=== PATIENT | male | born 1950 | race Caucasian/White ===

== ENCOUNTER → 2021-01-18 14:54 | Outpatient (CLI) | payer OTHER, SELFPAY ==
[2021-01-18 16:05] LABS: BUN Creatinine Ratio 26.5 (6-22); Blood Urea Nitrogen 26 mg/dL (9-20); Calcium 10.4 mg/dL (8.4-10.2); Carbon Dioxide 26 mmol/L (22-32); Chloride 107 mmol/L (98-107); Estimated Glomerular Filt Rate > 60.0 mL/min (>60); Glucose 88 mg/dL (80-110); HEMOLYSIS < 15 (0-50); Potassium 4.6 mmol/L (3.4-5.1); Sodium 142 mmol/L (137-145)
[2021-01-18 16:32] LABS: Prostate Specific Antigen 4.19 ng/mL (0.10-4.00)
== END ==
PROVIDERS: PCP Emergency Medicine; Referring Provider Specialist; Visit Provider Specialist
DX: R31.9 Hematuria, unspecified (principal); N40.0 Benign prostatic hyperplasia without lower urinary tract symptoms; R39.9 Unspecified symptoms and signs involving the genitourinary system; Z80.42 Family history of malignant neoplasm of prostate; N39.0 Urinary tract infection, site not specified
CPT/HCPCS: 36415; 80048; 81002; 84153; 99214

== ENCOUNTER → 2021-02-05 10:21 | Outpatient (CLI) | payer OTHER, SELFPAY ==
[2021-02-05 11:51] LABS: BUN Creatinine Ratio 19.3 (6-22); Blood Urea Nitrogen 16 mg/dL (9-20); Calcium 9.7 mg/dL (8.4-10.2); Carbon Dioxide 28 mmol/L (22-32); Chloride 104 mmol/L (98-107); Estimated Glomerular Filt Rate > 60.0 mL/min (>60); Glucose 124 mg/dL (80-110); HEMOLYSIS < 15 (0-50); Potassium 4.4 mmol/L (3.4-5.1); Sodium 139 mmol/L (137-145)
== END ==
PROVIDERS: PCP Emergency Medicine; Referring Provider Specialist; Visit Provider Specialist
DX: R94.4 Abnormal results of kidney function studies (principal)
CPT/HCPCS: 36415; 80048

== ENCOUNTER → 2021-02-10 09:32 | Outpatient (CLI) | payer OTHER, SELFPAY ==
--- NOTE | 2021-02-10 09:33 | DI.CT.S_ITS ---
PROCEDURE: CT ABDOMEN PELVIS WO/W CON INDICATIONS: Hematuria TECHNIQUE: Optional 5 mm thick noncontrast images acquired from the diaphragm to the symphysis pubis. After the administration of intravenous contrast, 5 mm thick images acquired from the diaphragm to the symphysis pubis after a 10-minute delay. 2 mm thick coronal and sagittal reformats were then performed of the kidneys and ureters. For radiation dose reduction, the following was used: automated exposure control, adjustment of mA and/or kV according to patient size. COMPARISON: None. FINDINGS: Image quality: Excellent. Lung bases: Lung bases are clear. Heart size is normal. Small hiatal hernia. Urinary system: Both kidneys are normal in size, without hydronephrosis. There is a 1 mm stone in the inferior pole of the right kidney. No perinephric fat stranding. There are small parapelvic cysts bilaterally. There is normal bilateral renal enhancement. Renal calyces appear normal in morphology when filled with contrast. Opacified portions of both ureters demonstrate normal caliber. Bladder wall thickness is normal. Multiple calcified bladder stones are present in the dependent bladder lumen. Prostate is enlarged. Other solid organs: Hepatic steatosis. Liver is normal in size and enhancement. Gallbladder is contracted. Biliary system is non dilated. Pancreas enhances normally. Spleen is normal in size and enhancement. No adrenal nodules. Peritoneum and bowel: Bowel loops demonstrate normal wall thickness and caliber. There are numerous colonic diverticula. No CT findings to suggest acute diverticulitis. No free fluid or air. Nodes and vessels: No retroperitoneal or mesenteric adenopathy by size criteria. Aorta and inferior vena cava are normal in size. Abdominal wall: No ventral hernias. Pelvis: No pathologic free pelvic fluid. No inguinal adenopathy. There is a fat containing left inguinal hernia. Bones: No suspicious bony lesions. No vertebral body compression fractures. There is a left hip prosthesis. IMPRESSION: 1. A 1 mm nonobstructive stone in the inferior pole of the right kidney. No hydronephrosis. 2. Multiple bladder stones. 3. Enlarged prostate. 4. Diverticulosis without diverticulitis. 5. Hepatic steatosis. Dictated by: Pratima Ngo M.D. on 02/10/2021 at 11:42 Approved by: Pratima Ngo M.D. on 02/10/2021 at 12:24
== END ==
PROVIDERS: PCP Emergency Medicine; Referring Provider Specialist; Visit Provider Specialist
DX: N20.0 Calculus of kidney (principal); N21.0 Calculus in bladder; R97.20 Elevated prostate specific antigen [PSA]; K57.90 Diverticulosis of intestine, part unspecified, without perforation or abscess without bleeding
CPT/HCPCS: 74178

== ENCOUNTER → 2021-04-14 13:52 | Outpatient (CLI) | payer OTHER, SELFPAY ==
[2021-04-24 15:36] LABS: Size 5x5 mm (.); Uric Acid 100 % (.)
== END ==
PROVIDERS: PCP Emergency Medicine; Visit Provider Specialist
DX: N21.0 Calculus in bladder (principal); N39.0 Urinary tract infection, site not specified; R39.9 Unspecified symptoms and signs involving the genitourinary system; R31.9 Hematuria, unspecified; Z80.42 Family history of malignant neoplasm of prostate
CPT/HCPCS: 52000; 81002; 82365; 99215

== ENCOUNTER → 2021-04-21 07:43 | Outpatient (CLI) | payer OTHER, SELFPAY ==
[2021-04-21 08:46] LABS: COVID19 -Nasal RAPID Negative (Negative)
== END ==
PROVIDERS: PCP Emergency Medicine; Visit Provider Specialist
DX: Z20.822 Contact with and (suspected) exposure to COVID-19 (principal)
CPT/HCPCS: 87635

== ENCOUNTER 2021-04-23 09:49 | Day surgery (SDC) | payer OTHER, SELFPAY ==
[2021-04-20 08:04] VITALS: BMI 29.8
[2021-04-23] VITALS (11 sets, daily range): BP systolic 138–160; BP diastolic 72–96; PULSE 58–84; RESP 10–20; TEMP 36.1–36.5; O2SAT 94–99; BMI 29.8
[2021-04-23] MEDS: LACTATED RINGERS 1,000 ML 42 ML IV ×2 (10:22→12:03)
--- NOTE | 2021-04-23 10:45 | PM.PREOP ---
Pre-operative Note Interval Note History & Physical reviewed/Exam performed by Physician: Yes Changes to H&P: No
[2021-04-23] MEDS: CEFAZOLIN 1 GM VIAL 2 GM IV (11:21)
--- NOTE | 2021-04-23 11:32 | SUR.OPER ---
Lithotomy on padded OR bed, head on pillow, arms secured on padded arm boards at <90 degrees abduction. Legs secured in padded yellow fins stirrups.
[2021-04-23] MEDS: BELLADONNA/OPIUM SUPPOSITORIES 1 EACH PR (11:52)
--- NOTE | 2021-04-23 12:34 | PM.OP.1 ---
Operative Date/Time/Diagnoses Date of procedure: 04/23/21 Time of procedure: 12:34 Pre-op diagnosis: 1. Multiple bladder calculi 2. Gross hematuria 3. Severe lower urinary tract symptoms Procedure & Clinicians Procedure: 1. Laser cystolitholapaxy Same procedure as scheduled: Yes Indications: 1. Multiple bladder calculi. 2. Gross hematuria. 3. Severe lower urinary tract symptoms. Surgeon: Malika Lopez Anesthesia Type: General Operative Notes Findings: 1. Urethra-normal caliber without annular stricture or lesion. 2. External sphincter coapted with normal overlying urothelium. 3. Prostate 4.5 cm length with moderate lateral lobe obstruction and elevated median bar. 4. Bladder-1+ trabeculation. There were multiple, perhaps 20-30 round calculi line dependently in the floor the bladder. Closure Type: not applicable Specimen(s): other (Bladder stone fragments and dust) Applied: catheter (#18F [address] way Hidalgo catheter.) Estimated Blood Loss (mL): 0 Blood products transfused: none Tourniquet time (min): 0 Procedure in detail: The patient was positioned supine and administered general anesthesia. The patient was then repositioned semi lithotomy the lower abdomen, groin, and genitalia were prepped and draped in sterile fashion. Next a 20 2 [place]ese laser continuous-flow endoscope was passed lower urinary tract with the findings as described above. Next, a 360 micron laser was selected. All operating room personnel and patient were fitted with laser safety eyewear. Laser lithotripsy was then commenced and painstakingly each of the bladder calculi were fragmented into dust and tiny fragments. The [employer] evacuator was utilized to clear the bladder of dust and fragments on multiple occasions. The bladder was then left partially filled and all instrumentation was removed. An 18 [place] Hidalgo catheter was then inserted, the balloon inflated 10 cc, and the catheter was placed to gravity drainage. Complications: none Post-operative Condition: stable Disposition: PACU Plan for aftercare: Discharge home.
--- NOTE | 2021-04-23 12:36 | SUR.OPER ---
SOLTIVE LASER TOTAL ENERGY 63.620KJ TOTAL TIME 38:01MIN
[2021-04-23] MEDS: OXYCODONE IR 5 MG TABLET PO ×2 (13:07→14:19)
--- NOTE | 2021-04-23 13:10 | SUR.PHASEI ---
Dr Borrero states that pt will go home with regina garcia.
[2021-04-23] MEDS: ACETAMINOPHEN 325 MG TABLET 975 MG PO (14:19)
[2021-05-03 15:31] LABS: Size 5x5 mm (.); Uric Acid 100 % (.)
== END 2021-04-23 14:45 | disposition home or self-care (01) ==
PROVIDERS: PCP Emergency Medicine; Referring Provider Specialist; Visit Provider Specialist
PROC: 0TCB8ZZ Extirpation of Matter from Bladder, Via Natural or Artificial Opening Endoscopic (ICD-10-PCS; CPT 52318; principal; 2021-04-23 10:45)
DX: N21.0 Calculus in bladder (principal); N40.1 Benign prostatic hyperplasia with lower urinary tract symptoms
CPT/HCPCS: 52318; 82365; 82962; J0690; J2405; J2704; J3010

== ENCOUNTER → 2021-07-20 11:53 | Outpatient (CLI) | payer OTHER, SELFPAY ==
[2021-07-20 14:02] LABS: Uric Acid 5.8 mg/dL (3.5-8.5)
[2021-07-20 14:29] LABS: Prostate Specific Antigen 4.67 ng/mL (0.10-4.00)
[2021-07-21 13:41] LABS: Calcium 9.6 mg/dL (8.6-10.2); Parathyroid Hormone, Intact 42 pg/mL (15-65)
== END ==
PROVIDERS: PCP Emergency Medicine; Referring Provider Specialist; Visit Provider Specialist
DX: N21.0 Calculus in bladder (principal); R31.9 Hematuria, unspecified; Z87.448 Personal history of other diseases of urinary system; N13.8 Other obstructive and reflux uropathy; N40.1 Benign prostatic hyperplasia with lower urinary tract symptoms; Z80.42 Family history of malignant neoplasm of prostate
CPT/HCPCS: 36415; 82310; 83970; 84153; 84550

== ENCOUNTER → 2021-11-02 08:13 | Outpatient (CLI) | payer OTHER, SELFPAY ==
[2021-11-02 11:42] LABS: Prostate Specific Antigen 4.74 ng/mL (0.10-4.00)
== END ==
PROVIDERS: PCP Emergency Medicine; Referring Provider Specialist; Visit Provider Specialist
DX: R97.20 Elevated prostate specific antigen [PSA] (principal)
CPT/HCPCS: 36415; 84153

== ENCOUNTER → 2022-04-06 11:33 | Outpatient (CLI) | payer OTHER, SELFPAY ==
[2022-04-07 08:28] LABS: PSA Free % 13.3 % (.); PSA, Total 5.5 ng/mL (0.0-4.0)
== END ==
PROVIDERS: PCP Emergency Medicine; Referring Provider Specialist; Visit Provider Specialist
DX: R97.20 Elevated prostate specific antigen [PSA] (principal)
CPT/HCPCS: 36415; 84153; 84154

== ENCOUNTER → 2022-05-31 07:15 | Outpatient (CLI) | payer OTHER, SELFPAY ==
--- NOTE | 2022-05-31 07:16 | DI.MRI.S_ITS ---
PROCEDURE: MR PELIS WO/W CON INDICATIONS: concern regarding PSA behavior TECHNIQUE: Coronal HASTE, axial T1 FSE with fat saturation, 3-plane nonbreath-hold T2 FSE. After the administration of contrast, dynamic axial, delayed axial and coronal VIBE or 2-D FLASH with fat saturation through the pelvis. Optional diffusion weighted imaging and ADC may be performed. COMPARISON: None. FINDINGS: Image quality: Diffusion weighted and dynamic contrast enhanced images remain diagnostic, despite distortion and susceptibility artifact from left hip arthroplasty. Prostate: Gland measures 5.1 x 3.6 x 5.0 cm for a volume of 48 cc. Lesion 1: Left apex posterolateral peripheral zone measuring 1.0 x 0.9 cm (4/17). DWI score 4. T2 score 4. DCE +. Pi-RADS 4. Lesion 2: Right posterolateral mid gland peripheral zone (4/15) measuring 1.2 x 1.0 cm. DWI score 3. T2 score 3. DCE +. Pi-RADS 4. Lesion 3: Right basal posterolateral peripheral zone/right lateral central zone measuring 1.0 x 0.8 cm (4/13). DWI score 3. T2 score 3. DCE neg. Pi-RADS 3. Lesion 4: Right anterior fibromuscular stroma measuring 1.4 x 0.7 cm (4/16). DWI score 4. T2 score 4. DCE +. Pi-RADS 4. Genitourinary system: Mild wall thickening and trabeculations. No mass. Bowel and peritoneum: Colonic diverticula. No bowel obstruction. No pathologic free fluid. Nodes and vessels: No lymph nodes enlarged by size criteria. Soft tissues: Left fat containing inguinal hernia. Bones: Left hip arthroplasty with susceptibility limiting evaluation of surrounding structures. IMPRESSION: PI-RADS 3 and 4 lesions in the bilateral peripheral zones and right anterior fibromuscular stroma as described above. Mild wall thickening and bladder trabeculations most commonly due to chronic outlet obstruction, otherwise not well evaluated on cross-sectional imaging. Dictated by: James Spears M.D. on 05/31/2022 at 9:53 Approved by: James Spears M.D. on 05/31/2022 at 10:06
== END ==
PROVIDERS: PCP Emergency Medicine; Referring Provider Specialist; Visit Provider Specialist
DX: N42.9 Disorder of prostate, unspecified (principal); R97.20 Elevated prostate specific antigen [PSA]; N32.89 Other specified disorders of bladder
CPT/HCPCS: 72197; A9579

== ENCOUNTER → 2022-06-22 08:34 | Outpatient (CLI) | payer OTHER, SELFPAY ==
[2022-06-23 06:08] LABS: PSA Free % 14.7 % (.); PSA, Total 6.4 ng/mL (0.0-4.0)
== END ==
PROVIDERS: Specialist; PCP Emergency Medicine; Referring Provider Internal Medicine; Visit Provider Internal Medicine
DX: R97.20 Elevated prostate specific antigen [PSA] (principal)
CPT/HCPCS: 36415; 84153; 84154

== ENCOUNTER → 2024-07-09 09:13 | Outpatient (CLI) | payer OTHER, SELFPAY ==
[2024-07-09 10:50] LABS: Alanine Aminotransferase 42 IU/L (<50); Albumin 4.5 g/dL (3.5-5.0); Albumin Globulin Ratio 1.9 (1.0-2.8); Alkaline Phosphatase 90 U/L (38-126); Aspartate Aminotransferase 29 IU/L (17-59); BUN Creatinine Ratio 19.6 (6-22); Bilirubin Total 1.1 mg/dL (0.2-1.3); Blood Urea Nitrogen 18 mg/dL (9-20); Calcium 9.6 mg/dL (8.4-10.2); Carbon Dioxide 24 mmol/L (22-32); Chloride 103 mmol/L (98-107); Cholesterol 167 mg/dL (140-199); Estimated Glomerular Filt Rate > 60 mL/min (>60); Globulin 2.4 g/dL (1.7-4.1); Glucose 116 mg/dL (80-110); HDL Cholesterol 46 mg/dL (40-60); HEMOLYSIS < 15 (0-50); LDL Cholesterol Calculated 84 mg/dL (<100); Potassium 4.8 mmol/L (3.4-5.1); Sodium 135 mmol/L (137-145); Total Protein 6.9 g/dL (6.3-8.2); Triglycerides 187 mg/dL (35-150)
[2024-07-09 10:51] LABS: Hemoglobin A1C% w Est Avg Glu 5.8 % (4.0-6.0)
[2024-07-09 11:44] LABS: Hep C Virus Ab w/Reflex Quant NEGATIVE s/c (NEGATIVE)
== END ==
PROVIDERS: PCP Family Medicine; Referring Provider Family Medicine; Visit Provider Family Medicine
DX: C61 Malignant neoplasm of prostate (principal); I25.10 Atherosclerotic heart disease of native coronary artery without angina pectoris; E78.5 Hyperlipidemia, unspecified; I87.2 Venous insufficiency (chronic) (peripheral); G45.9 Transient cerebral ischemic attack, unspecified
CPT/HCPCS: 36415; 80053; 80061; 83036; 86803

== ENCOUNTER → 2024-09-25 14:58 | Outpatient (CLI) | payer OTHER, SELFPAY ==
[2024-09-25 17:43] LABS: Add Manual Diff / Slide Review NO; Basophils Absolute Auto 0 /uL (0-100); Basophils Percent Auto 0.2 % (0-2); Eosinophils Absolute Auto 100 /uL (0-450); Eosinophils Percent Auto 1.6 % (2-4); Hematocrit 42.2 % (41-53); Hemoglobin 14.1 g/dL (13.5-17.5); Lymphocytes Absolute Auto 1000 /uL (1100-4500); Lymphocytes Percent Auto 12.8 % (25-40); Mean Corpuscular HGB Conc 33.4 % (30-36); Mean Corpuscular Hemoglobin 30.9 PG (26-34); Mean Corpuscular Volume 92.6 fL (80-100); Monocytes Absolute Auto 700 /uL (0-900); Monocytes Percent Auto 9.2 % (3-14); Neutrophils Absolute Auto 6000 /uL (1500-7000); Neutrophils Percent Auto 76.2 % (50-75); Platelet Count 349 X10^3/uL (150-400); Red Blood Cell Count 4.56 X10^6/uL (4.5-5.9); Red Cell Distribution Width 13.4 % (11.6-14.8); White Blood Cell Count 7.9 X10^3/uL (4.5-11.0)
[2024-09-25 18:10] LABS: Alanine Aminotransferase 36 IU/L (<50); Albumin 4.2 g/dL (3.5-5.0); Albumin Globulin Ratio 1.4 (1.0-2.8); Alkaline Phosphatase 98 U/L (38-126); Aspartate Aminotransferase 25 IU/L (17-59); BUN Creatinine Ratio 17.6 (6-22); Bilirubin Total 0.8 mg/dL (0.2-1.3); Blood Urea Nitrogen 24 mg/dL (9-20); Calcium 9.7 mg/dL (8.4-10.2); Carbon Dioxide 26 mmol/L (22-32); Chloride 102 mmol/L (98-107); Estimated Glomerular Filt Rate 55 mL/min (>60); Globulin 2.9 g/dL (1.7-4.1); Glucose 96 mg/dL (80-110); HEMOLYSIS < 15 (0-50); Lipase 59 U/L (23-300); Potassium 4.7 mmol/L (3.4-5.1); Sodium 136 mmol/L (137-145); Total Protein 7.1 g/dL (6.3-8.2)
== END ==
PROVIDERS: PCP Family Medicine; Referring Provider Family Medicine; Visit Provider Family Medicine
DX: R10.31 Right lower quadrant pain (principal)
CPT/HCPCS: 36415; 80053; 83690; 85025

== ENCOUNTER → 2024-09-30 11:49 | Outpatient (CLI) | payer OTHER, SELFPAY ==
--- NOTE | 2024-09-30 12:00 | DI.CT.S_ITS ---
PROCEDURE: CT ABDOMEN PELVIS W CON INDICATIONS: RLQ pain TECHNIQUE: After the administration of intravenous contrast, axial sections acquired from the lung bases to the pubic symphysis. Coronal and sagittal reformats were performed. For radiation dose reduction, the following was used: automated exposure control, adjustment of mA and/or kV according to patient size. COMPARISON: [facility], CT, CT ABDOMEN PELVIS WO/W CON, 02/10/2021, 10:09. FINDINGS: Image quality: Diagnostic. Lower Chest: 3 millimeter well-defined nodule right lower lobe (series 3, image number 7), nonspecific. ABDOMEN: Liver: No solid mass. Gallbladder: No radiopaque gallstones or wall thickening. Biliary ducts: No biliary dilation. Pancreas: No ductal dilation. Spleen: Size is within normal limits. Adrenal Glands: No adrenal nodules. Kidneys and Ureters: [id number] right-sided hydronephrosis and right-sided mild hydroureter with periureteral inflammatory changes in the retroperitoneal fat. Minimal left-sided hydronephrosis without hydroureter on the left. No obstructing renal calculi. 2 millimeter calculus lower pole right kidney nonobstructing. Stomach and Bowel: Normal colonic caliber, without significant wall thickening. Peritoneum: No abnormal intraperitoneal fluid. No free air. Ventral Wall: No significant ventral hernia. Abdominal Nodes: No retroperitoneal or mesenteric adenopathy by size criteria. Vessels: Aorta and inferior vena cava are normal in size. PELVIS: Pelvic Organs: Unremarkable. Bladder: Right-sided lateral and posterolateral bladder wall thickening new from the prior study up to 1.2 centimeters in thickness. Prior noted stones within the bladder no longer present. Pelvic Nodes: Numerous subcentimeter right pelvic lymph nodes. Inflammatory changes in the right pelvic fat surrounding the right ureter and adjacent to the bladder. Miscellaneous: Small inguinal hernia containing fat on the left. Extensive sigmoid diverticulosis without definite evidence of diverticulitis. Bones: No aggressive osseous abnormality. Stable permeative changes left iliac bone unchanged from February 10, 2021 likely benign appearance. IMPRESSION: 1. New findings of moderate right-sided hydronephrosis and right sided mild hydroureter as well as left mild hydronephrosis with asymmetric right-sided bladder wall thickening up to 1.2 centimeters in thickness. Inflammatory changes about the right ureter and bladder and some numerous small lymph nodes in the right pelvis. Differential diagnosis includes infectious, inflammatory and possibly neoplastic process within the bladder. The prior noted stones within the bladder are no longer present. Direct visualization with cystoscopy is recommended, urologic consultation. 2. 3 millimeter right lower lobe lung nodule, nonspecific. This region was not imaged on the prior study. 4. Other incidental findings as above. Dictated by: Peng Maya M.D. on 09/30/2024 at 14:54 Approved by: Peng Maya M.D. on 09/30/2024 at 15:05
== END ==
LOC: CT 11:49
PROVIDERS: PCP Family Medicine; Referring Provider Family Medicine; Visit Provider Family Medicine
DX: N13.30 Unspecified hydronephrosis (principal); N20.0 Calculus of kidney; R91.1 Solitary pulmonary nodule; R10.31 Right lower quadrant pain
CPT/HCPCS: 74177; Q9967

== ENCOUNTER → 2024-10-12 08:44 | Outpatient (CLI) | payer OTHER, SELFPAY ==
[2024-10-12 10:45] LABS: Prostate Specific Antigen 1.17 ng/mL (0.10-4.00)
== END ==
PROVIDERS: PCP Family Medicine; Referring Provider Physician Assistant; Visit Provider Physician Assistant
DX: C61 Malignant neoplasm of prostate (principal)
CPT/HCPCS: 36415; 84153

== ENCOUNTER → 2024-12-18 08:29 | Outpatient (CLI) | payer OTHER, SELFPAY ==
[2024-12-18 10:25] LABS: Add Manual Diff / Slide Review NO; Basophils Absolute Auto 0 /uL (0-100); Basophils Percent Auto 0.4 % (0-2); Eosinophils Absolute Auto 200 /uL (0-450); Eosinophils Percent Auto 2.5 % (2-4); Hematocrit 37.7 % (41-53); Hemoglobin 12.8 g/dL (13.5-17.5); Lymphocytes Absolute Auto 1200 /uL (1100-4500); Lymphocytes Percent Auto 17.2 % (25-40); Mean Corpuscular HGB Conc 33.9 % (30-36); Mean Corpuscular Hemoglobin 30.5 PG (26-34); Mean Corpuscular Volume 89.9 fL (80-100); Monocytes Absolute Auto 500 /uL (0-900); Monocytes Percent Auto 7.3 % (3-14); Neutrophils Absolute Auto 5000 /uL (1500-7000); Neutrophils Percent Auto 72.6 % (50-75); Platelet Count 380 X10^3/uL (150-400); Red Blood Cell Count 4.19 X10^6/uL (4.5-5.9); White Blood Cell Count 6.9 X10^3/uL (4.5-11.0)
[2024-12-18 10:56] LABS: Alanine Aminotransferase 27 IU/L (<50); Albumin 4.6 g/dL (3.5-5.0); Albumin Globulin Ratio 1.7 (1.0-2.8); Alkaline Phosphatase 67 U/L (38-126); Aspartate Aminotransferase 21 IU/L (17-59); BUN Creatinine Ratio 19.7 (6-22); Bilirubin Total 0.7 mg/dL (0.2-1.3); Blood Urea Nitrogen 29 mg/dL (9-20); Calcium 9.8 mg/dL (8.4-10.2); Carbon Dioxide 21 mmol/L (22-32); Chloride 105 mmol/L (98-107); Estimated Glomerular Filt Rate 50 mL/min (>60); Globulin 2.7 g/dL (1.7-4.1); Glucose 114 mg/dL (80-110); HEMOLYSIS < 15 (0-50); Potassium 5.3 mmol/L (3.4-5.1); Sodium 139 mmol/L (137-145); Total Protein 7.3 g/dL (6.3-8.2)
[2024-12-18 11:27] LABS: TSH w/ Reflex to FT4 2.59 uIU/mL (0.47-4.68)
[2024-12-18 12:47] LABS: Hemoglobin A1C% w Est Avg Glu 5.7 % (4.0-6.0)
== END ==
PROVIDERS: PCP Family Medicine; Referring Provider Family Medicine; Visit Provider Family Medicine
DX: N28.9 Disorder of kidney and ureter, unspecified (principal); R53.82 Chronic fatigue, unspecified; R73.01 Impaired fasting glucose; K62.89 Other specified diseases of anus and rectum
CPT/HCPCS: 80053; 83036; 84443; 85025

== ENCOUNTER → 2025-04-01 09:17 | Outpatient (CLI) | payer OTHER, SELFPAY ==
[2025-04-01 10:17] LABS: Creatinine Urine Random 102.41 mg/dL
[2025-04-01 10:25] LABS: Microalbumin Urine Random 2.1 mg/dL (0-1.6)
[2025-04-01 10:45] LABS: BUN Creatinine Ratio 19.1 (6-22); Blood Urea Nitrogen 22 mg/dL (9-20); Carbon Dioxide 23 mmol/L (22-32); Chloride 103 mmol/L (98-107); Estimated Glomerular Filt Rate > 60 mL/min (>60); Glucose 132 mg/dL (70-99); HEMOLYSIS < 15 (0-50); Potassium 5.2 mmol/L (3.4-5.1); Sodium 138 mmol/L (137-145)
== END ==
PROVIDERS: PCP Family Medicine; Referring Provider Family Medicine; Visit Provider Family Medicine
DX: Z00.00 Encounter for general adult medical examination without abnormal findings (principal); C61 Malignant neoplasm of prostate; I10 Essential (primary) hypertension; N18.30 Chronic kidney disease, stage 3 unspecified; I25.10 Atherosclerotic heart disease of native coronary artery without angina pectoris
CPT/HCPCS: 36415; 80048; 82043; 82570; 84153

== ENCOUNTER → 2025-10-01 08:16 | Outpatient (CLI) | payer OTHER, SELFPAY ==
[2025-10-01 09:03] LABS: Add Manual Diff / Slide Review NO; Hematocrit 42.6 % (41-53); Hemoglobin 14.3 g/dL (13.5-17.5); Lymphocytes Absolute Auto 1600 /uL (1100-4500); Mean Corpuscular HGB Conc 33.5 % (30-36); Mean Corpuscular Hemoglobin 30.6 PG (26-34); Mean Corpuscular Volume 91.2 fL (80-100); Platelet Count 306 X10^3/uL (150-400)
[2025-10-01 09:34] LABS: Hemoglobin A1C% w Est Avg Glu 6.0 % (4.0-6.0)
[2025-10-01 10:02] LABS: Blood Urea Nitrogen 20 mg/dL (9-20); Calcium 9.4 mg/dL (8.4-10.2); Carbon Dioxide 22 mmol/L (22-32); Chloride 104 mmol/L (98-107); Cholesterol 143 mg/dL (140-199); Estimated Glomerular Filt Rate > 60 mL/min (>60); Glucose 121 mg/dL (70-99); HDL Cholesterol 43 mg/dL (40-60); HEMOLYSIS < 15 (0-50); Potassium 5.1 mmol/L (3.4-5.1); Sodium 138 mmol/L (137-145); Triglycerides 264 mg/dL (35-150)
== END ==
PROVIDERS: PCP Family Medicine; Referring Provider Family Medicine; Visit Provider Family Medicine
DX: I25.10 Atherosclerotic heart disease of native coronary artery without angina pectoris (principal); I12.9 Hypertensive chronic kidney disease with stage 1 through stage 4 chronic kidney disease, or unspecified chronic kidney disease; N18.30 Chronic kidney disease, stage 3 unspecified; R05.3 Chronic cough; E78.5 Hyperlipidemia, unspecified
CPT/HCPCS: 36415; 80048; 80061; 83036; 85025